=== PATIENT | female | born 1970 | race Asian ===

== ENCOUNTER 2024-05-12 23:11 | Emergency (ER) | payer MEDICAID, OTHER ==
[~2024-05-12] VITALS: Ht 157.5 cm; Wt 56.0 kg
[2024-05-12 23:14] VITALS: BP 130/87; PULSE 68; RESP 18; TEMP 36.9; O2SAT 99
[2024-05-13] MEDS ORDERED: BO1 TP (00:36)
[2024-05-13] MEDS ORDERED: TRIA60LO12 TP (00:36)
== END 2024-05-13 00:41 | disposition home or self-care (01) ==
LOC: ER 23:11
DX: R21 Rash and other nonspecific skin eruption (principal); Z79.899 Other long term (current) drug therapy
CPT/HCPCS: 99283